=== PATIENT | female | born 2000 | race Caucasian/White ===

== ENCOUNTER 2023-01-16 07:09 | Inpatient (IN) | payer BC, SELFPAY ==
[2023-01-16] VITALS (41 sets, daily range): BP systolic 111–161; BP diastolic 63–97; PULSE 78–143; RESP 16–18; TEMP 36.4–37; O2SAT 87–99; BMI 35.1
[2023-01-16] MEDS: LACTATED RINGERS 1000 ML 1,000 ML 999 ML IV ×3 (07:10→08:41)
[2023-01-16 07:27] LABS: Basophils Percent Auto 0.4 % (0.0-3.0); Hematocrit 37.2 % (33.0-51.0); Hemoglobin* 12.8 gm/dL (12.0-16.0); Immature Granulocytes Pct Auto 0.2 %; Lymphocytes Percent Auto 16.4 % (20-44); Mean Corpuscular HGB Conc 34 gm/dL (32-36); Mean Corpuscular Hemoglobin 31 pg (26-34); Mean Corpuscular Volume 90 fL (80-100); Monocytes Percent Auto 7.4 % (0.0-11.0); Neutrophils Percent Auto 74.6 % (42.0-72.0); Platelet Count* 263 K/uL (140-440); Red Blood Count 4.15 m/uL (4.00-5.20); White Blood Count* 13.74 K/uL (4.50-11.00)
[2023-01-16 07:31] LABS: Creatinine* 0.8 mg/dL (0.5-1.5); Estimated Glomerular Filt Rate 105 ml/min; Slide Review Reflex No
[2023-01-16 07:32] LABS: Alanine Aminotransferase* 20 U/L (4-35); Aspartate Amino Transferase* 36 U/L (12-35); Blood Urea Nitrogen* 18 mg/dL (5-24)
[2023-01-16 07:40] LABS: Prothrombin Time 13.8 Seconds
[2023-01-16] MEDS: lidocaine HCL 2 % JELLY (TOP) STERILE 6 ML TOPICAL (07:40)
[2023-01-16 07:41] LABS: Partial Thromboplastin Time* 29 Seconds (23-33)
[2023-01-16] MEDS: metroNIDAZOLE 500 MG/100 ML PIGGYBACK 100 MG IVPB ×2 (08:00→16:01)
[2023-01-16 08:04] LABS: Fibrinogen* 605 mg/dL (200-450)
[2023-01-16 08:09] LABS: Creatinine Urine 87.6 mg/dL
[2023-01-16 08:15] LABS: Total Protein Urine 356 mg/dL
[2023-01-16 08:19] LABS: Cannabinoid Screen Urine Negative (Negative)
[2023-01-16 08:20] LABS: Amphetamine Screen Urine Negative (Negative); Barbiturate Screen Urine Negative (Negative); Benzodiazepines Screen Urine Negative (Negative); Cocaine Screen Urine Negative (Negative); Methadone Screen Urine Negative (Negative); Methamphetamines Screen Urine Negative (Negative); Opiate Screen Urine Negative (Negative); Oxycodone Screen Urine Negative (Negative); Phencyclidine Screen Urine Negative (Negative); Tricyclic Antidepressant Urine Negative (Negative)
[2023-01-16] MEDS: GENTAMICIN IVPB (08:42)
[2023-01-16] MEDS: SODIUM CHLORIDE 0.9% IVPB (08:42)
--- NOTE | 2023-01-16 09:46 | P.ANES_ITS ---
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
--- NOTE | 2023-01-16 09:47 | W.PM.NB ---
Nerve Block Nerve Block Time Seen by Provider: : Date Seen: 01/16/23 Type of block requested by surgeon for post-operative analgesia: TAP Side: bilateral Time out performed: Yes Verification of patient name: Yes Verification of date of : Yes Name of person performing procedure: Kira Jolie Continuous monitoring Was continuous monitoring of O2 sat, B/P, egg smeller, recorded every 15 minutes?: Yes Procedure Checklist: sterile prep, needles and gloves Ultrasound guided. Images saved: Yes Medications given in 5ml increments after negative aspiration: Marcaine %: 0.25 mL: 30 Needle gauge: 21 and Exparel mL: 10 Needle gauge: 21 Patient tolerated procedure well: Yes Block Charges Block Charge (with Pro Fee): TAP Unilateral Use of Ultrasound Machine for Block: Yes- US Guidance/pain block
--- NOTE | 2023-01-16 10:10 | PM.OBLDTN ---
OB - Triage/Final Diagnosis Visit Information Time Seen by Provider: 07:20 Date Seen: 01/16/23 Narrative: Notified by center at around 7:10 a.m. that there is a patient, unknown to us, who came in by EMS. She was camping in [place] when she had rupture of amniotic membrane and contractions. However, there is concerns for significant vaginal bleeding with SROM. I was told patient reports she thinks she is 36 weeks but does not know exactly. She knows her due date is 02/14/2023. heart rate in 150s without deceleration and that her cervical exam was 1 cm. However, patient had BP 154/96. I asked for STAT CBC, Coag, PreE labs, UDS, and Type and cross for 2u of pRBC. OR team on their way. I also asked for an environment friendly landscape designer to be present as we do not have any information on her . Upon my arrival (around 0725 a.m.), patient is in distress from contraction pain. Patient is normal in between contraction. Her sridhar is saturated was blood but RN reports that it has slowed down. She has small amount of bleeding with each contraction but it was not as it was when she arrived. NST: 150 bpm, moderate variability, no acceleration, no deceleration. Still overall, Cat I. Her clinical picture and tocometer is indicative of placental abruption. S[place]: low amplitude and frequent contractions. She is rodrigo almost every Q1 minute. I was informed that environment friendly landscape designer was 45 minutes out. I performed a bedside ultrasound that showed: ely fetus in left oblique presentation, no placenta previa, no fluid pocket identified. Patient unable to hold still to do biometry. Fundal height at 36.5 cm. Patient is a 22 y/o at reportly 36 weeks. She is a poor historian but she reports that she gets regular care since 7 weeks. She was camping and had leakage of fluid out of nowhere. She denies any abdominal trauma, drug use, but report she has high blood pressure in . I asked her to clarify her diagnosis as chronic hypertension, gestational hypertension or pre-eclampsia. She does not know exactly but said she had 1 high blood pressure at her first visit but was fine until 1 month ago, when her blood pressure spiked and her provider started her on Nifedipine XL . Her provider has been increasing her nifedipine be due to uncontrolled blood pressures. She's had to be evaluated at the hospital a lot because my blood pressure gets so high. Her last dose adjustment least her at taking nifedipine XL 60 mg in the morning and 30 mg at night. She also reports that she has to go to the clinic 2-3 times a week to make sure the pressures are ok and the baby is ok. She does not know when her provider was planning on delivering her. She denies any other health problems such as asthma and diabetes. She reports she doesn't take any other medication besides her blood pressure medication. She reports that there was concern for anomalies with her initially due to short bones and the baby being too small. However, she had a blood test that said her baby was normal and her whole family is very short so they think it's just related to everyone being so small. Patient is 4'10'' and FOB is 5'0. I did perform SVE: /-2, soft, and mid. Small amount of blood on glove but no active bleeding, even during contractions. I discussed with her the diagnosis of placental abruption. Given that this is her first baby and she's at a small dilation, I do not foresee and expeditious vaginal delivery. We are also no able to help her by augmenting her labor due to suspected placental abruption and tachysystole. It is reassuring that heart rate is currently category 1 but there is high risk of sudden deterioration and in the setting of placental abruption. I recommended that we proceed with an urgent section. Donita is distressed about this as she is very scared of surgery. She is requesting to be completely knocked out for the surgery. I discussed with Donita that given Cat I tracing, my preference is for spinal. General anesthesia crosses the placenta and can make baby more depressed at time of . Her baby is already and we have concern for utero-placental compromise so when it's safe to do so, we would prefer not to have to put her completely to sleep. Kira Dave CRNA was present and counseled her about risks/benefits/ and alternatives of pain control during delivery and she agreed with my assessment. Patient is reassured that if we're able to do a spinal her can be with her in the operating room. Denies any persistent headache, vision changes, SOB, right upper quadrant or rapidly expanding edema. Evaluation Laboratory results: Laboratory Tests 01/16/23 01/16/23 01/16/23 Range/Units Unknown 07:19 07:15 WBC 13.74 H (4.50-11.00) K/uL RBC 4.15 (4.00-5.20) m/uL Hgb 12.8 (12.0-16.0) gm/dL Hct 37.2 (33.0-51.0) % MCV 90 (80-100) fL MCH 31 (26-34) pg MCHC 34 (32-36) gm/dL RDW Coeff of Aung 13.0 (11.5-15.5) % Plt Count 263 (140-440) K/uL Neut % (Auto) 74.6 H (42.0-72.0) % Lymph % (Auto) 16.4 L (20-44) % [place] % (Auto) 7.4 (0.0-11.0) % Eos % (Auto) 1.0 (0.0-7.0) % Baso % (Auto) 0.4 (0.0-3.0) % Neut # (Auto) 10.30 H (1.7-7.0) K/uL Lymph # (Auto) 2.30 (0.90-2.90) K/uL [place] # (Auto) 1.00 H (0.00-0.90) K/UL Eos # (Auto) 0.10 (0.00-0.50) K/uL Baso # (Auto) 0.10 (0.00-0.30) K/uL Abs Immat Gran (auto) 0.00 (0.00-0.30) K/uL Imm/Tot Granulo (auto) 0.2 % INR 1.00 (0.91-1.10) APTT 29 (23-33) Seconds Fibrinogen 605 H (200-450) mg/dL BUN 18 (5-24) mg/dL Creatinine 0.8 (0.5-1.5) mg/dL Estimated GFR 105 ml/min AST 36 H (12-35) U/L ALT 20 (4-35) U/L Urine Creatinine 87.6 mg/dL Protein/Creatinin Ratio 4.00 H (0-0.19) Urine Total Protein 356 mg/dL Urine Opiates Screen Negative (Negative) Ur Oxycodone Screen Negative (Negative) Urine Methadone Screen Negative (Negative) Ur Propoxyphene Screen Negative (Negative) Ur Barbiturates Screen Negative (Negative) U Tricyclic Antidepress Negative (Negative) Ur Phencyclidine Scrn Negative (Negative) Ur Amphetamines Screen Negative (Negative) U Methamphetamines Scrn Negative (Negative) U Benzodiazepines Scrn Negative (Negative) Urine Cocaine Screen Negative (Negative) U Marijuana (THC) Screen Negative (Negative) Blood Type A Positive Antibody Screen NEGATIVE Crossmatch ([facility]) See Detail Vital signs: Vital Signs - 24 hr 01/16/23 07:06 01/16/23 07:08 01/16/23 07:11 Temperature Pulse Rate 136 H Respiratory Rate Blood Pressure 154/96 H Pulse Oximetry 97 97 Oxygen Delivery Method 01/16/23 07:16 01/16/23 07:21 01/16/23 07:25 Temperature Pulse Rate Respiratory Rate Blood Pressure Pulse Oximetry 98 97 89 Oxygen Delivery Method 01/16/23 07:26 01/16/23 07:28 01/16/23 07:31 Temperature Pulse Rate 134 H Respiratory Rate Blood Pressure 153/89 H Pulse Oximetry 94 98 Oxygen Delivery Method 01/16/23 07:32 01/16/23 07:36 01/16/23 07:39 Temperature Pulse Rate 133 H Respiratory Rate Blood Pressure 138/95 H Pulse Oximetry 88 98 Oxygen Delivery Method 01/16/23 07:41 01/16/23 07:46 01/16/23 07:46 Temperature Pulse Rate Respiratory Rate Blood Pressure Pulse Oximetry 98 99 87 L Oxygen Delivery Method 01/16/23 07:48 01/16/23 09:31 01/16/23 09:35 Temperature 97.5 F L Pulse Rate 127 H 143 H 128 H Respiratory Rate 16 16 Blood Pressure 141/89 H 145/93 H 135/86 Pulse Oximetry 94 97 Oxygen Delivery Method Room Air 01/16/23 09:40 01/16/23 09:45 01/16/23 09:50 Temperature Pulse Rate 132 H 132 H 131 H Respiratory Rate 16 16 16 Blood Pressure 140/80 H 140/82 H 132/72 Pulse Oximetry 97 96 97 Oxygen Delivery Method Room Air 01/16/23 09:55 09/02/23 10:00 Temperature 97.8 F Pulse Rate 135 H 133 H Respiratory Rate 16 16 Blood Pressure 161/97 H 155/97 H Pulse Oximetry 99 98 Oxygen Delivery Method Room Air Comments: Physical exam: General: In pain with contractions. Her sridhar is saturated with blood/amniotic fluid. Psych: Alert and oriented x3, full affect Heart: Hypertensive and tachycardic. No murmurs. Lungs: Clear to auscultation bilaterally Abdomen: Tender with contraction. No rebound, or guarding Lower extremities: Trace lower extremity edema. Pelvic exam: 50/-2, soft, and mid. Small amount of blood on glove but no active bleeding, even during contractions. Final Diagnosis (1) Placental abruption: Status: Acute Problem details: CS Consent The patient was consented for section and blood. She understands that the three main categories of risk include bleeding, infection, and damage to surrounding structures. Regarding infection, she understands that we will be delivering appropriate antibiotics, however that the risk of infection following section still is approximately 5%. She understands that though the risk is very low that there is always a risk of damage to the bladder, uterus, ovaries, fallopian tubes, bowels, ureters, or even the fetus. She understands that most injuries can be addressed at the time of surgery, however, such an injury may require additional surgeries to fix. Lastly, she understands that a section carries a risk of bleeding, and that while this bleeding can be addressed with multiple medical and surgical modalities, that there is the possibility of needing a blood transfusion. She reports she would accept a blood transfusion understanding the risks of a 1/200,000 risk of Hepatitis and 1/2,000,000 risk of HIV as well as the risk of having an allergic reaction to the blood products. She further understands that this reaction is typically mild, however can be severe including respiratory distress and necessitating ICU-level care. Lastly, she understands that a section does increase risks for future pregnancies and deliveries including, but not limited to, the risk of uterine rupture or placenta accreta. Hgb/plt: 12.8 T&S: A+ Coag: pending Plan: will proceed with urgent CD. (2) Chronic hypertension with superimposed pre-eclampsia: Status: Acute Problem details: - BP in triage 140-150s/80-90s ? Unclear at this point if she has CHTN/SIPreE or GHTN/PreE. She did not take her Nifedipine today. ? Symptoms: No signs of REMOTE MEDICAL CODER irritability, pulmonary edema, or hepatic edema ? Magnesium: Currently unindicated based on the information that we have ? IV antihypertensives: Currently unindicated ? Pre-eclampsia labs on 01/16: Pending
--- NOTE | 2023-01-16 10:10 | PM.OBPRCCS ---
Procedure Time Seen by Provider: 07:25 Date of procedure: 01/16/23 Procedure Done: Global Will [facility] bill your pro fee for this procedure?: Yes Procedure Description: DELIVERY BY SECTION Date of Service: 01/16/2023 Delivery time: 814 Summary: Admitted for suspected placenta abruption at 35w6d, Primary Lower uterine transverse section, Pfannenstiel, Closed with sutures, QBL 723 cc intraop, QBL 256 cc preop, complication: uterine atony, extension into right uterine artery requiring right uterine artery ligation with O'leary stitch. Findings: Couvelaire appearing uterus on lower left quadrant of the uterus, 30% placental abruption, normal bilateral ovaries and fallopian tubes 6/8, weight 2505 g. Primary Indication: Suspected placental abruption remote from delivery Procedures: Primary Lower uterine transverse section Specimens Removed: Placenta Surgeon: Jessenia Marinelli MD Caster Operator Surgeon: None Anesthesia: Spinal, TAP Report: Prophylactic antibiotics, Gentamicin 5mg/kg and flagyl 500 mg IV (there is currently no clindamycin in the hospital) was given before patient was taken to OR. After arrival to the operating room patient was placed in the supine position with left lateral tilt after administration of spinal anesthesia. Laparotomy A pfannenstiel incision was made through the anterior abdominal wall with #10 scalpel approximately 2 cm above the pubic symphysis. The incision was extended sharply with the #10 scalpel through the subcutaneous tissue to the level of fascia. The fascia was entered sharply with a #10 scalpel (Pfannenstiel) in the midline and extended in semi-elliptical fashion bluntly with digits. The rectus muscles were in the midline bluntly with digits. The peritoneum was then entered bluntly. The peritoneal incision was then extended superiorly and inferiorly under direct visualization with care being taken to avoid bladder and bowel. No adhesions were noted. The peritoneal incision was enlarged bluntly by lateral traction from the surgeon's and assistant manager of operations's hand. Jm retractor was inserted into the abdomen. Delivery A bladder flap was not developed as the bladder was low off the lower uterine segment. A low transverse hysterotomy was made then with #10 scalpel and extended laterally and cephalad with fingers in a low transverse fashion with Manu Ballesteros technique with care being taken to avoid injury to the fetus. The amniotic cavity (membrane) was not noted to be present at location of entry, minimal amniotic fluid expressed, but appeared to be clear. head was in the left oblique position and need to be rotated to be brought to the hysterotomy. Fetus was delivered cephalic. With delivery of the baby, 1 cm right inferior extension was noted and appeared to be breach the right uterine vessel. This was clamped with ring forceps for temporary hemostasis. A portion of the placenta came out with the delivery of the fetus and the rest of the placenta was delivered spontaneously with steady traction on cord and manual separation of placenta from uterine wall. Closure Uterine cavity was cleaned after placental delivery with lap sponge x 2. The hysterotomy was closed in one layer with stitches using 0 vicryl with continuous locking stitches. A 2nd imbricating layer was placed with 0 Monocryl continuous nonlocking manner. 3 cm hematoma noted at right angle. Right O'leary stitch placed at the right uterine angle with care taken to move venous vasculature in the board ligament away from suture ligation site. Hematoma was not expanding after suture ligation. Figure of 8 placed at left hysterotomy angle due to 2 cm hematoma. Hematoma was non expanding after suture ligation. Hemostasis was achieved as needed with electrocautery. The ovaries/tubes/uterine surface were evaluated. They were found to be normal. Jm retractor removed and hemostasis was confirmed again. Fascia was closed with running stitches using 0 vicryl. Subcutaneous layer was irrigated - patient had a few pubic hair in the subcutaneous layer that was removed. Hemostasis was checked for and found to be adequate. The subcutaneous layer was closed with running 2-0 plain gut sutures. The skin was closed with monocryl subcuticular sutures. The incision was cleaned and covered with steri strip, silver dressing was placed, and the procedure considered terminate at this time. Intraoperative Complications: Uterine atony, extension into right uterine artery requiring right uterine artery ligation with O'leary stitch QBL: 256 cc preop and 723 cc intraop. Total 979 cc Uterotonics: 40 u of pitocin,0.25 mg Hemabate x 2, 1 g of TXA x 2 Disposition: The patient tolerated the procedure well. She was recovered in Obstetric PACU for close monitoring in stable condition, with a contracted uterus and normal transvaginal bleeding. The (Cindy) was sent to nursery for care as she required CPAP. A segment of the cord was obtained for umbilical cord gases. The placenta was sent to pathology.
[2023-01-16 10:34] LABS: Basophils Percent Auto 0.2 % (0.0-3.0); Eosinophils Percent Auto 0.5 % (0.0-7.0); Hematocrit 38.3 % (33.0-51.0); Hemoglobin* 12.8 gm/dL (12.0-16.0); Immature Granulocytes Pct Auto 0.3 %; Lymphocytes Percent Auto 10.7 % (20-44); Mean Corpuscular HGB Conc 33 gm/dL (32-36); Mean Corpuscular Hemoglobin 31 pg (26-34); Mean Corpuscular Volume 92 fL (80-100); Monocytes Percent Auto 4.4 % (0.0-11.0); Neutrophils Percent Auto 83.9 % (42.0-72.0); Platelet Count* 272 K/uL (140-440); Red Blood Count 4.17 m/uL (4.00-5.20); White Blood Count* 24.61 K/uL (4.50-11.00)
[2023-01-16 10:35] LABS: Slide Review Reflex Yes
[2023-01-16] MEDS: LOPERAMIDE HCL 2 MG CAPSULE 4 MG PO (10:44)
[2023-01-16 11:08] LABS: Slide Review Acceptable Review (Acceptable)
[2023-01-16] MEDS: KETOROLAC 30 MG/ML inj IVP ×2 (12:28→18:26)
[2023-01-16] MEDS: LABETALOL HCL 100 MG TABLET 200 MG PO ×2 (12:33→20:57)
[2023-01-16] MEDS: ACETAMINOPHEN 500 MG TABLET 1000 MG PO ×2 (12:34→18:27)
[2023-01-16 12:40] LABS: Basophils Percent Auto 0.2 % (0.0-3.0); Eosinophils Percent Auto 0.2 % (0.0-7.0); Hematocrit 35.4 % (33.0-51.0); Hemoglobin* 11.9 gm/dL (12.0-16.0); Immature Granulocytes Pct Auto 0.2 %; Lymphocytes Percent Auto 7.9 % (20-44); Mean Corpuscular HGB Conc 34 gm/dL (32-36); Mean Corpuscular Hemoglobin 30 pg (26-34); Mean Corpuscular Volume 91 fL (80-100); Monocytes Percent Auto 6.2 % (0.0-11.0); Neutrophils Percent Auto 85.3 % (42.0-72.0); Platelet Count* 235 K/uL (140-440); Red Blood Count 3.91 m/uL (4.00-5.20); White Blood Count* 22.09 K/uL (4.50-11.00)
[2023-01-16 12:41] LABS: Slide Review Reflex No
[2023-01-16] MEDS: ENOXAPARIN 40 MG/0.4 ML INJ SUBCUT (16:02)
[2023-01-16] MEDS: LEVOTHYROXINE 88 MCG TABLET PO (16:40)
--- NOTE | 2023-01-16 17:34 | PM.OBPNVD1 ---
OB - PN:Subj Subjective Time Seen by Provider: 18:12 Date Seen: 01/16/23 Narrative: Went to evaluation patient. She is comfortable in bed, currently pumping. Her pain is well controlled on IV pain medication. She is tolerating a regular diet. She has not passed flatus. She is not yet ambulating. Lochia - very scant on pad. She is urinating with mcclelland - adequate 0.67 cc/kg/hr. Patient denies chest pain, SOB, n/v, headache, RUQ pain, vision changes, dizziness. Review of records and verified with patient: Maternal diagnoses 1. Chronic HTN 2. Preeclampsia, severe, third trimester - On nifedipine 60 mg XL AM and 30 mg at PM 3. Obesity 4. Anxiety and depression - managed by psychiatry (wellbutrin 300 XL and hydroxyzine 25 mg QHS) 5. Tobacco use 6. Nausea and vomiting in 7. Impaired fasting glucose 8. History of genital herpes - on 1g of valtrex ppx 9. Infertility, female, secondary 10. Migraine with aura 11. Insulin resistance 12. PCOS 13. Hypothyroidism - on 88mcg of levothyroxine Patient had BP of 144/94 (138/74 on repeat) at 7w6d and 142/110 (140/88 on repeat) at 12w1d. She reports that she was not put on any medication at that time. Her BP resolved when she quit tobacco use. After that all of her blood pressures were within normal limits up until 30w6d when she had a BP of 160/98 (170/122 and 150/90 on repeats), @32w4d BP 142/82, @33w5d BP 168/93 (150/90 on repeat), @ 35w4d BP of 150/96, 160/100, 164/102, and 154/92. She was getting twice weekly NST and once weekly BPP. She was admitted to the hospital at 32w, 33w5d and at 35w4d clinic visit due to her BP. She had progressively worsening protein on Udip (trace @30w1d, 2+@34w3d, 3+@35w4d) Appears that she was diagnosed with preeclampsia, severe on 12/22/2022 @32w2d She received BMZ series during her hospitalization at 33w5d Her last PreE labs on 01/14 showed P/C ratio of 3.1 (H), otherwise wnl Notably, patient has high HR in 120-130s bpm. She was referred to cardiology and had Holter monitor. She has not met with a care support representative to assess her Holter monitor result. Her heart rate was 120-130s bpm the entire time since she's been with us until last vital sign check which HR was at 93 (on EKG monitoring). Her BP was 130-150s/80-90s. She did not take her Nifedipine XL this AM as she work up rodrigo and had SROM. I discussed with patient that I favor treating her with labetalol in the immediate situation as Nifedipine can worsen her tachycardia. OB - PN: Obj Exam Physical Exam: Vital signs: Temp Pulse Resp BP Pulse Ox O2 Del Method 97.5 F L 93 16 111/63 96 Room Air 01/16/23 16:09 01/16/23 16:01/16/23 16:01/16/23 16:01/16/23 16:01/16/23 16:09 Narrative: Physical exam: General: No acute distress Psych: Alert and oriented x3, full affect HEENT: Normocephalic, atraumatic Neck: No cervical adenopathy, no thyromegaly Heart: Regular rate and rhythm, no murmur rub or gallop Lungs: Clear to auscultation bilaterally Abdomen: Normoactive bowel sounds, soft, appropriately tenderness near incision site. No rebound, or guarding Skin: No lesions or rashes Breasts: no nodules or masses, no nipple discharge, no axillary adenopathy Lower extremities: +1 bilateral lower extremity edema Pelvic exam: Scant lochia. Mcclelland in place - clear urine OB - PN: Obj Data Labs Labs: Laboratory Results - last 24 hr 01/16/23 01/16/23 01/16/23 07:15 07:19 10:25 WBC 13.74 H 24.61 H RBC 4.15 4.17 Hgb 12.8 12.8 Hct 37.2 38.3 MCV 90 92 MCH 31 31 MCHC 34 33 RDW Coeff of Aung 13.0 13.0 Plt Count 263 272 Neut % (Auto) 74.6 H 83.9 H Lymph % (Auto) 16.4 L 10.7 L [place] % (Auto) 7.4 4.4 Eos % (Auto) 1.0 0.5 Baso % (Auto) 0.4 0.2 Neut # (Auto) 10.30 H 20.60 H Lymph # (Auto) 2.30 2.60 [place] # (Auto) 1.00 H 1.10 H Eos # (Auto) 0.10 0.10 Baso # (Auto) 0.10 0.00 Abs Immat Gran (auto) 0.00 0.10 Imm/Tot Granulo (auto) 0.2 0.3 Diff Slide Review Acceptable Review INR 1.00 APTT 29 Fibrinogen 605 H BUN 18 Creatinine 0.8 Estimated GFR 105 AST 36 H ALT 20 Urine Creatinine Protein/Creatinin Ratio Urine Total Protein Urine Opiates Screen Ur Oxycodone Screen Urine Methadone Screen Ur Propoxyphene Screen Ur Barbiturates Screen U Tricyclic Antidepress Ur Phencyclidine Scrn Ur Amphetamines Screen U Methamphetamines Scrn U Benzodiazepines Scrn Urine Cocaine Screen U Marijuana (THC) Screen Blood Type A Positive Antibody Screen NEGATIVE Crossmatch ([facility]) See Detail 01/16/23 01/16/23 12:35 Unknown WBC 22.09 H RBC 3.91 L Hgb 11.9 L Hct 35.4 MCV 91 MCH 30 MCHC 34 RDW Coeff of Aung 13.0 Plt Count 235 Neut % (Auto) 85.3 H Lymph % (Auto) 7.9 L [place] % (Auto) 6.2 Eos % (Auto) 0.2 Baso % (Auto) 0.2 Neut # (Auto) 18.80 H Lymph # (Auto) 1.70 [place] # (Auto) 1.40 H Eos # (Auto) 0.00 Baso # (Auto) 0.00 Abs Immat Gran (auto) 0.00 Imm/Tot Granulo (auto) 0.2 Diff Slide Review INR APTT Fibrinogen BUN Creatinine Estimated GFR AST ALT Urine Creatinine 87.6 Protein/Creatinin Ratio 4.00 H Urine Total Protein 356 Urine Opiates Screen Negative Ur Oxycodone Screen Negative Urine Methadone Screen Negative Ur Propoxyphene Screen Negative Ur Barbiturates Screen Negative U Tricyclic Antidepress Negative Ur Phencyclidine Scrn Negative Ur Amphetamines Screen Negative U Methamphetamines Scrn Negative U Benzodiazepines Scrn Negative Urine Cocaine Screen Negative U Marijuana (THC) Screen Negative Blood Type Antibody Screen Crossmatch ([facility]) OB - PN: A/P Delivery Assessment and Plan (1) Placental abruption: Status: Acute Assessment and Plan: - Delivered via urgent delivery (2) Chronic hypertension with superimposed pre-eclampsia: Status: Acute Assessment and Plan: - BP currently 111/63, HR 93, responding well to labetalol - Symptoms: No signs of OIL CHANGER irritability, pulmonary edema, or hepatic edema - Magnesium: Currently unindicated as she does not have OIL CHANGER irritability symptoms, severe ranging BP. Her plt is 235. Cr 0.8 (at patient's baseline), AST 36 and ALT 20. P/C ratio 4.00 - IV antihypertensives: Currently unindicated. On PO labetalol 200 mg Q8H. - Will continue to monitor
[2023-01-17] VITALS (11 sets, daily range): BP systolic 125–136; BP diastolic 73–84; PULSE 67–87; RESP 16; TEMP 36.4–36.9; O2SAT 96–98
[2023-01-17] MEDS: KETOROLAC 30 MG/ML inj IVP ×2 (02:06→07:40)
[2023-01-17] MEDS: ACETAMINOPHEN 500 MG TABLET 1000 MG PO (02:25)
[2023-01-17] MEDS: OXYCODONE 5 MG TABLET PO (02:26)
[2023-01-17] MEDS: LANOLIN CREAM 1 APPLIC TOPICAL (03:04)
[2023-01-17] MEDS: LABETALOL HCL 100 MG TABLET 200 MG PO ×2 (05:22→12:39)
[2023-01-17 06:32] LABS: Hemoglobin* 10.4 gm/dL (12.0-16.0)
[2023-01-17] MEDS: LEVOTHYROXINE 88 MCG TABLET PO (09:01)
[2023-01-17] MEDS: buPROPion XL 150 MG TABLET 300 MG PO (09:01)
--- NOTE | 2023-01-17 09:28 | P.DS_ITS ---
DS: Providers Provider Date Seen: 01/17/23 Date of admission: 01/16/23 07:09 Primary care physician: Not a Local Provider Admitting Clinician: Carla Lopez MD Attending Physician on discharge: Sharon North APRN, ANAHY Date of Discharge: 01/17/23 DS: Diagnosis Discharge Diagnosis (1) care and examination immediately after delivery: Status: Acute (2) Chronic hypertension with superimposed pre-eclampsia: Status: Acute (3) delivery delivered: Status: Acute Exam Narrative: Exam Narrative: GENERAL APPEARANCE:? normal affect, alert, no distress MOOD:? appropriate CHEST:? clear to auscultation HEART:? regular rate and rhythm ABDOMEN:? soft, non-tender the uterine fundus is At Umbilicus, Midline and is appropriate for the stage of recovery. Mild tenderness on right lower abdomen. EXTREMITIES:? normal and no edema Incision: Silver nitrate dressing in place. To be removed at 7 days post delivery. Clean, dry, and intact. Const: Vital Signs, click to edit/add: Vital Signs - 24 hr 01/16/23 09:31 01/16/23 09:35 01/16/23 09:40 Temperature 97.5 F L Pulse Rate 143 H 128 H 132 H Pulse Rate [Blood Pressure Cuff] Pulse Rate [Pulse Oximeter] Respiratory Rate 16 16 16 Blood Pressure 145/93 H 135/86 140/80 H Blood Pressure [Le ft Arm] Blood Pressure [Ri ght Arm] Pulse Oximetry 94 97 97 Oxygen Delivery Me thod Room Air 01/16/23 09:40 01/16/23 09:45 01/16/23 09:50 Temperature Pulse Rate 132 H 131 H Pulse Rate [Blood Pressure Cuff] Pulse Rate [Pulse Oximeter] Respiratory Rate 17 16 16 Blood Pressure 140/82 H 132/72 Blood Pressure [Le ft Arm] Blood Pressure [Ri ght Arm] Pulse Oximetry 96 97 Oxygen Delivery Me thod Room Air 01/16/23 09:55 01/16/23 10:00 01/16/23 10:10 Temperature 97.8 F 98.6 F Pulse Rate 135 H 133 H Pulse Rate [Blood Pressure Cuff] Pulse Rate [Pulse Oximeter] 136 H Respiratory Rate 16 16 16 Blood Pressure 161/97 H 155/97 H Blood Pressure [Le ft Arm] Blood Pressure [Ri ght Arm] 146/86 H Pulse Oximetry 99 [facility] 01/16/23 10:25 01/16/23 10:40 01/16/23 10:40 Temperature Pulse Rate Pulse Rate [Blood Pressure Cuff] Pulse Rate [Pulse Oximeter] 132 H 135 H Respiratory Rate 16 16 18 Blood Pressure Blood Pressure [Le ft Arm] 130/85 144/95 H Blood Pressure [Ri ght Arm] Pulse Oximetry Oxygen Delivery Il thod 01/16/23 10:55 01/16/23 11:10 01/16/23 11:19 Temperature Pulse Rate Pulse Rate [Blood Pressure Cuff] Pulse Rate [Pulse Oximeter] 135 H 132 H 125 H Respiratory Rate 18 16 16 Blood Pressure Blood Pressure [Le ft Arm] 145/94 H 143/90 H 146/87 H Blood Pressure [Ri ght Arm] Pulse Oximetry 96 96 97 [facility] 01/16/23 11:38 01/16/23 11:40 01/16/23 12:09 Temperature Pulse Rate Pulse Rate [Blood Pressure Cuff] Pulse Rate [Pulse Oximeter] 124 H 127 H Respiratory Rate 16 18 18 Blood Pressure Blood Pressure [Le ft Arm] 151/89 H 149/83 H Blood Pressure [Ri ght Arm] Pulse Oximetry 96 96 [facility] 01/16/23 12:40 01/16/23 12:56 01/16/23 13:40 Temperature 98.6 F Pulse Rate Pulse Rate [Blood Pressure Cuff] 116 H Pulse Rate [Pulse Oximeter] Respiratory Rate 18 17 18 Blood Pressure Blood Pressure [Le ft Arm] Blood Pressure [Ri ght Arm] 145/95 H Pulse Oximetry 96 [facility] Air 01/16/23 16:09 01/16/23 19:52 01/16/23 19:52 Temperature 97.5 F L 98.1 F Pulse Rate Pulse Rate [Blood Pressure Cuff] 93 84 Pulse Rate [Pulse Oximeter] Respiratory Rate 16 16 16 Blood Pressure Blood Pressure [Le ft Arm] 112/71 Blood Pressure [Ri ght Arm] 111/63 Pulse Oximetry 96 95 [facility] 01/16/23 20:40 01/16/23 21:40 01/16/23 22:38 Temperature Pulse Rate Pulse Rate [Blood Pressure Cuff] Pulse Rate [Pulse Oximeter] Respiratory Rate 16 16 16 Blood Pressure Blood Pressure [Le ft Arm] Blood Pressure [Ri ght Arm] Pulse Oximetry Oxygen Delivery Me thod 01/16/23 22:38 01/16/23 23:40 01/17/23 00:40 Temperature 98.1 F Pulse Rate Pulse Rate [Blood Pressure Cuff] Pulse Rate [Pulse Oximeter] 78 Respiratory Rate 16 16 16 Blood Pressure Blood Pressure [Le ft Arm] 120/72 Blood Pressure [Ri ght Arm] Pulse Oximetry 98 Oxygen Delivery Me thod Room Air 01/17/23 01:40 01/17/23 02:31 01/17/23 02:32 Temperature 97.6 F Pulse Rate Pulse Rate [Blood Pressure Cuff] 87 Pulse Rate [Pulse Oximeter] Respiratory Rate 16 16 16 Blood Pressure Blood Pressure [Le ft Arm] 127/73 Blood Pressure [Ri ght Arm] Pulse Oximetry 97 Oxygen Delivery Il thod Room Air 01/17/23 03:40 01/17/23 05:23 01/17/23 05:23 Temperature 97.7 F Pulse Rate Pulse Rate [Blood Pressure Cuff] 67 Pulse Rate [Pulse Oximeter] Respiratory Rate 16 16 16 Blood Pressure Blood Pressure [Le ft Arm] 136/84 Blood Pressure [Ri ght Arm] Pulse Oximetry 97 Oxygen Delivery Me thod Room Air 01/17/23 05:40 01/17/23 06:40 01/17/23 07:58 Temperature 97.7 F Pulse Rate Pulse Rate [Blood Pressure Cuff] 83 Pulse Rate [Pulse Oximeter] Respiratory Rate 16 16 16 Blood Pressure Blood Pressure [Le ft Arm] Blood Pressure [Ri ght Arm] 125/79 Pulse Oximetry Oxygen Delivery Me od Room Air 01/17/23 08:17 Temperature Pulse Rate Pulse Rate [Blood Pressure Cuff] Pulse Rate [Pulse Oximeter] Respiratory Rate 16 Blood Pressure Blood Pressure [Le ft Arm] Blood Pressure [Ri ght Arm] Pulse Oximetry Oxygen Delivery Me thod OB - DS: Summary Hospital Course Hospital Course: Donita is a 22 y.o. G 2 P1 who was admitted to [facility] for placenta abruption. ?She had a section complicated by aburption and . Baby was transferred to [facility]. She desires discharge today to be with baby. She has a history of Chronic HTN and was diagnosed with superimposed HTN this . She is currently managed on 200 mg of Labetalol q 8 hours. Her primary OB provider is at an outside facility. She plans follow-up with them. The patient feels well. ?The pain is well controlled with current medications. ?She has no new complaints. ? the patient has done well.? Vitals have been stable.?BP has been normotensive on current regimen of Labetalol. Will recommend she remain here until 24 hours of normotensive BP before discharge, this is noon today. She has remained afebrile.? Has a good appetite, is tolerating a general diet. ?She is voiding without difficulty.? She is passing gas and has not had a bowel movement.? She is ambulating and denies any dizziness.? Has small amount of rubra lochia. She is undecided about her plan for prevention. Problems: Chronic HTN plan: Discharge home with baby. Follow up in 2 weeks and 6 weeks. , may see if needed Hgb 10.4. CHTN, superimposed Pre-e without SF. Continue labetalol q 8 hours. Monitor BP at home before each dose of medication. Recommend follow-up on Wednesday if possible. Patient already has appointment on Wednesday with her primary OB provider. Peripartum Data delivery method: Primary C/S; Non-Labored Procedures: Procedures Operation Date: 01/16/23 08:15 Actual Procedure Side Surgeon p Section Jessenia Marinelli MD complications: none [place] Infant Gender: Female Infant Discharge Plan: NICU after delivery Status at Discharge Functional status at discharge: independent ambulation Overall status at discharge: patient is progressing back to baseline Time Spent with Patient Time attestation: Total time spent providing and/or coordinating discharge services: Discharge Plan Discharge Disposition: Home, Self-Care Date of Admission: 01/16/23 07:09 Primary Care Provider: Provider,Not a Local Condition: Stable Anticipated Discharge Date/Time: 01/17/23 14:00 Discharge Medications: New venlafaxine 75 mg Capsule,Extended Release 24hr 75 mg PO DAILY Qty: 0 0RF venlafaxine 75 mg Capsule,Extended Release 24hr 150 mg PO DAILY Qty: 0 0RF acetaminophen 500 mg Tablet 1,000 mg PO Q6H PRN (Reason: Pain) Qty: 0 0RF levothyroxine [Synthroid] 88 mcg Tablet 88 mcg PO DAILY@0700 Qty: 0 0RF bupropion HCl 150 mg Tablet Extended Release 24 Hr 300 mg PO DAILY Qty: 0 0RF labetalol 200 mg tablet 200 mg PO Q8H Qty: 30 1RF docusate sodium 100 mg Capsule 100 mg PO DAILY Qty: 90 0RF ibuprofen 600 mg Tablet 600 mg PO Q6H PRN (Reason: Pain) Qty: 60 0RF oxycodone 5 mg Tablet 5 - 10 mg PO Q4H PRN (Reason: Pain) Qty: 12 0RF Discharge Orders: Discharge Order (Routine); Ordered 01/17/23 Ordered By: Sharon North Patient Education: OB Over the Counter Medication Information, OB /Breast Feeding Additional Instructions: Discharge instructions were reviewed with the patient including signs and symptoms of infection and home going medications Lifting Restrictions: 20 pounds for 6 weeks No not submerge incision under water X 2 weeks? Nothing vaginally for 6 weeks: no tampons or intercourse Do not drive while taking narcotic pain medication(s) Off Work or School for 8 weeks Symptoms to report to doctor: * Bleeding that saturates more than one pad per hour * Passing clots larger than the size of a golf ball * Pain not relieved by prescribed medication * Fever above 100.4 degrees Fahrenheit * A foul vaginal odor * Difficulty in emotions, mood, and functions * Thoughts of hurting yourself and/or * Painful, reddened area in your breast * Any drainage, redness, or tenderness in your IV/epidural site * Severe headache that doesn't improve after taking medications * Changes in vision, including temporary loss of vision, blurred vision, and/or light sensitivity * Upper abdominal pain (usually under ribs on the right side) * Decrease in urination or painful, frequent urinating * Chest pain * Shortness of breath * Tenderness or pain with redness and/swelling in the calf(s) of your leg Follow Up with primary care provider for a BP check?01/19/2023 Call with BP greater than or equal to 140/90 or sustained 160/110. Continue checking your blood pressure 3x per day. 2-week visit: incision check, discuss feeding concerns, review control options and screen for anxiety/depression. 6-week visit for an annual exam. consultation services are available to all mothers and babies for the first year after delivery.? To make an appointment, please call [phone]. Activity Level: Activity as Tolerated and Light activity Follow Up Appointments: Provider,Not a Local [Primary Care Provider] - (Return to primary OB provider) Forms: [employer] Info Instructions
[2023-01-17] MEDS: VENLAFAXINE ER 75 MG CAPSULE 225 MG PO (10:01)
== END 2023-01-17 13:01 | disposition home or self-care (01) | DRG 540 ==
LOC: OB OUT 07:10 → OB 07:48
PROVIDERS: Obstetrics & Gynecology; Admitting Provider Obstetrics & Gynecology; Visit Provider Obstetrics & Gynecology
PROC: 10D00Z1 Extraction of Products of Conception, Low, Open Approach (ICD-10-PCS; CPT 59514; principal; 2023-01-16 08:00)
DX: O45.93 Premature separation of placenta, unspecified, third trimester (principal); O10.92 Unspecified pre-existing hypertension complicating childbirth; O14.14 Severe pre-eclampsia complicating childbirth; O62.2 Other uterine inertia; Z37.0 Single live birth; O99.344 Other mental disorders complicating childbirth; F41.9 Anxiety disorder, unspecified; F32.A Depression, unspecified; O99.284 Endocrine, nutritional and metabolic diseases complicating childbirth; E03.9 Hypothyroidism, unspecified; G89.18 Other acute postprocedural pain; Z3A.35 35 weeks gestation of pregnancy
CPT/HCPCS: 01961; 36415; 64488; 76815; 76942; 80306; 82565; 82570; 84112; 84156; 84450; 84460; 84520; 85018; 85025; 85384; 85610; 85730; 86850; 86900; 86901; 86922; 88307; 99140; 99213; A9270; C9290; J0665; J1580; J1650; J1885; J2250; J2274; J2371; J2405; J2590; J3370; J7120; S0030